=== PATIENT | female | born 1960 | race Caucasian/White ===

== ENCOUNTER 2022-04-08 17:37 | Emergency (ER) | payer MEDICARE, OTHER ==
[~2022-04-08] VITALS: Ht 167.6 cm; Wt 69.0 kg
[2022-04-08] MEDS ORDERED: DILTIAZEM 24HR120 M2 PO (17:59)
== END 2022-04-08 18:19 | disposition home or self-care (01) ==
LOC: ER 17:37
DX: Z76.0 Encounter for issue of repeat prescription (principal); Z88.8 Allergy status to other drugs, medicaments and biological substances; Z79.899 Other long term (current) drug therapy
CPT/HCPCS: A9270

== ENCOUNTER 2023-02-27 07:23 | Day surgery (SDC) | payer MEDICARE, OTHER ==
[~2023-02-27] VITALS: Ht 167.6 cm; Wt 75.5 kg
[~2023-02-27 07:23] MED LIST: DILTIAZEM 24HR120 M2 PO
[2023-02-27] MEDS ORDERED: ATOR20 (08:13)
[2023-02-27] MEDS ORDERED: METHI10 PO (08:14)
[2023-02-27] MEDS ORDERED: Spironolactone25 MG PO (08:15)
[2023-02-27] MEDS ORDERED: XARELTO20 MG (08:17)
[2023-02-27 10:06] VITALS: BP 128/74
== END 2023-02-27 09:58 | disposition home or self-care (01) ==
LOC: ORSCSDS 07:23
PROVIDERS: Surgery
PROC: 0DB68ZX Excision of Stomach, Via Natural or Artificial Opening Endoscopic, Diagnostic (ICD-10-PCS; principal; 2023-02-27 08:30)
PROC: 0DBM8ZX Excision of Descending Colon, Via Natural or Artificial Opening Endoscopic, Diagnostic (ICD-10-PCS; principal; 2023-02-27 08:30)
PROC: 0DBL8ZX Excision of Transverse Colon, Via Natural or Artificial Opening Endoscopic, Diagnostic (ICD-10-PCS; principal; 2023-02-27 08:30)
PROC: 0DB48ZX Excision of Esophagogastric Junction, Via Natural or Artificial Opening Endoscopic, Diagnostic (ICD-10-PCS; principal; 2023-02-27 08:30)
DX: Z12.11 Encounter for screening for malignant neoplasm of colon (principal); Z83.719 Family history of colon polyps, unspecified; R10.10 Upper abdominal pain, unspecified; K21.9 Gastro-esophageal reflux disease without esophagitis; K22.70 Barrett's esophagus without dysplasia; D12.4 Benign neoplasm of descending colon; D12.3 Benign neoplasm of transverse colon; K29.70 Gastritis, unspecified, without bleeding; I10 Essential (primary) hypertension; E78.5 Hyperlipidemia, unspecified; F17.210 Nicotine dependence, cigarettes, uncomplicated; Z79.01 Long term (current) use of anticoagulants; Z79.899 Other long term (current) drug therapy
CPT/HCPCS: 88305; 88342; J2704; J7120

== ENCOUNTER → 2023-03-29 | Outpatient (CLI) | payer MEDICARE, OTHER ==
[~2023-03-29] MED LIST changes: +ATOR20; +METHI10 PO; +Spironolactone25 MG PO; +XARELTO20 MG
[2023-04-03 16:09] LABS: HPV 16 Negative (Negative); HPV 18 Negative (Negative); HPV OTHER HR TYPES Negative (Negative)
== END ==
LOC: LAB SHORT 19:32 → LAB 19:32
PROVIDERS: Physician Assistant
DX: Z01.419 Encounter for gynecological examination (general) (routine) without abnormal findings (principal)
CPT/HCPCS: 87624; G0145

== ENCOUNTER 2023-12-21 06:33 | Day surgery (SDC) | payer MEDICARE, OTHER ==
[2023-12-21] VITALS (7 sets, daily range): BP systolic 99–156; BP diastolic 57–84
[~2023-12-21 06:33] MED LIST changes: +DILT120 PO; +LOSA25 PO
[2023-12-21] MEDS ORDERED: NS 1,000 ML IV ONE (06:43)
[2023-12-21] MEDS ORDERED: Benzocaine Oral Spray 0.5ML UD ONE (06:54)
--- NOTE | 2023-12-21 07:23 | NUR ---
ASSUMED CARE FROM ANESTHESIA. PT AWAKE AND VERBALIZING WELL.
[2023-12-21] MEDS ORDERED: FURO40 PO (07:36)
--- NOTE | 2023-12-21 07:42 | NUR ---
PT VERBALIZED UNDERSTANDING OF WRITTEN AND VERBAL D/C INST. IV REMOVED. PT UP AMB IN THE RM /S DIFFICULTY.
[2023-12-21] MEDS ORDERED: Propofol 10mg/ml 20 ml Vial (Procedural) IV ONE (12:39)
== END 2023-12-21 23:02 | disposition home or self-care (01) ==
LOC: MHTC 06:33
DX: I34.0 Nonrheumatic mitral (valve) insufficiency (principal); I48.91 Unspecified atrial fibrillation; I50.9 Heart failure, unspecified; I25.10 Atherosclerotic heart disease of native coronary artery without angina pectoris; I11.0 Hypertensive heart disease with heart failure; F17.210 Nicotine dependence, cigarettes, uncomplicated; E04.9 Nontoxic goiter, unspecified; Z88.1 Allergy status to other antibiotic agents; I10 Essential (primary) hypertension
CPT/HCPCS: 93312; 93325; A9270; J2704; J7030